=== PATIENT | female | born 1940 | race Caucasian/White ===

== ENCOUNTER → 2019-10-17 | Day surgery (SDC) | payer MEDICARE, OTHER ==
[2019-10-12 15:37] LABS: BASOPHILS # (AUTO) 0.1 (0.0-0.1); BASOPHILS % 0.8 % (0.0-1.0); EOSINOPHILS # (AUTO) 0.2 (0.0-0.4); HEMATOCRIT 43.4 % (34.2-44.1); HEMOGLOBIN 14.1 g/dL (12.0-16.0); LYMPHOCYTES # (AUTO) 3.7 (1.0-3.2); LYMPHOCYTES % 31.9 % (18.0-39.1); MEAN CORPUSCULAR HEMOGLOBIN 29.3 pg (28-32); MEAN CORPUSCULAR HGB CONC 32.5 g/dL (31-35); MONOCYTES # (AUTO) 0.9 (0.2-0.8); MONOCYTES % 8.1 % (4.4-11.3); NEUTROPHILS # (AUTO) 6.6 (2.1-6.9); NEUTROPHILS % 56.7 % (38.7-80.0); PLATELET COUNT 344 x10e3/uL (140-360); RED BLOOD COUNT 4.82 x10e6/uL (3.6-5.1); RED CELL DISTRIBUTION WIDTH 13.5 % (11.7-14.4)
[2019-10-12 15:54] LABS: ANION GAP 15.7 mmol/L (8-16); CREATININE, SERUM 1.23 mg/dL (0.57-1.11); POTASSIUM 3.7 mmol/L (3.5-5.1)
--- NOTE | 2019-10-12 16:15 | Diagnostic Imaging Report ---
Exam: CHEST 2 VIEWS Date: 10/12/2019 4:10 PM INDICATION: ^PRE - OP Comparison: None FINDINGS: Lines/Tubes:None Lungs:The lungs are well inflated. No focal consolidation or pulmonary edema. Pleura:No pleural effusion. No pneumothorax. Heart/Mediastinum:The cardiomediastinal silhouette is normal in size and contour. Bones/Soft Tissues: No acute osseous abnormality. 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 Advanced multilevel degenerative changes of the thoracic spine and upper lumbar spine are noted with multilevel advanced disc space narrowing and anterolateral osteophytes. Upper abdomen: Cholecystectomy clips are noted in the right upper quadrant. IMPRESSION: Negative for acute intrathoracic process Signed by: Pepito Coley MD on 10/12/2019 4:11 PM
[~2019-10-17] MED LIST: AMLODIPINE BESY10 MG PO; BUPIVACAINE HCL 0.5% INJ 30 ML VIAL INJ ONE; CEFAZOLIN SOD 1 GM/NS 50ML 100 ML IV ONE; DEXAMETHASONE SOD PHOS INJ 4 MG/ML VIAL ONE; DIOVAN HCT 3201 EACH; FARXIGA10 MG; FLUOXETINE HCL20 M1 PO; GLIPIZIDE ER5 MG PO; LIDOCAINE HCL 2% LOCAL INJ 5 ML SDV VIAL INJ ONE; LOSARTAN POTAS100 MG PO; NEOSTIGMINE 1 MG/ML 10ML VIAL ONE; ONDANSETRON HCL INJ 2MG/ML 2ML 2 MG/ML VIAL ONE; PANTOPRAZOLE SO40 MG PO; PEPCID20 MG PO; PROPOFOL IV EMULSION 10 MG/ML 20 ML VIAL ONE; SEVOFLURANE INHAL SOLN 250 ML PEN BTL ONE; SIMVASTATIN20 MG PO; VITAMIN D; VITAMIN E400 UNI1; XANAX XR1 MG PO; XARELTO10 MG
--- NOTE | 2019-10-17 07:20 | NUR ---
SPIRITUAL CARE - Pre-Surgery Assessment: Pt in bed. Pt's daughter at bedside. Pt reported supportive attention from family and friends. Intervention: Whiting Machine Operator provided pastoral presence, hospitality, sympathetic listening, and prayer. Acquainted pt with availability of flow floor attendant while hospitalized. Outcome: Pt expressed appreciation for visit. No need for follow up indicated at this time. RAD[facility] Spiritual Care Department O: [phone]
[2019-10-17 10:30] VITALS: BP 152/73
--- NOTE | 2019-10-17 12:54 | Operative Report ---
DATE OF PROCEDURE: 10/17/2019 SURGEON: Latonia Cintron DPM PREOPERATIVE DIAGNOSES: 1. Chronic ulcer, left 2nd digit. 2. Rigid hammertoe, left 2nd, left 4th. 3. Diabetes with neuropathy. POSTOPERATIVE DIAGNOSES: 1. Chronic ulcer, left 2nd digit. 2. Rigid hammertoe, left 2nd, left 4th. 3. Diabetes with neuropathy. PROCEDURE: 1. Arthrodesis PIPJ 2nd, arthrodesis PIPJ 4th, flexor tendon tenotomy, 3rd. 2. Debridement of the ulcers 2nd with graft. 3. Excisional debridement to include subcutaneous tissue. ANESTHESIA: General anesthetic. HEMOSTASIS: Pneumatic thigh tourniquet. ESTIMATED BLOOD LOSS: Less than 10 mL. MATERIALS: [employer] PIPJ arthrodesis implant, Smart Toes x2, one for the 2nd, one for the 4th and the next one is human allograft for the ulcer. COMPLICATIONS: None. CONDITION: Stable. PROCEDURE IN DETAIL: Under mild sedation, the patient was brought to the operating room, placed on the operating table in supine position. Following IV sedation, anesthesia was obtained with a general anesthetic. At this point, the left foot scrubbed, prepped, and draped in the usual aseptic manner. It was then lowered to the table. Attention was directed to the 2nd digit, where a linear incision was made overlying the PIPJ joint. The incision was deepened via sharp and blunt dissection taking care to retract or cauterize neurovascular structures as necessary. It was deepened down to the level of the extensor tendon. The extensor tendon was then tenotomized in a transverse fashion. The PIPJ joint was visualized utilizing oscillating saw. The PIPJ joint was then made. It was then prepared for arthrodesis. It was then fixated utilizing an implant from [employer] Smart toe. There was noted to be adequate alignment clinically with the use of intraoperative fluoroscopy. Arthrodesis PIPJ 4th, this procedure was performed in the exact same manner as the procedure named above. Flexor tenotomy was performed of the plantar aspect of the 3rd in order to decrease the contracture and decrease the hammertoe. Debridement of the ulcer, 2nd. Attention was directed to the distal aspect where the chronic ulcer on the 2nd, left. Utilizing a #15 blade, the ulcer was debrided down to the level of subcutaneous tissue. Human allograft was then inserted in order to promote healing to the area. It was then secured utilizing a nonstick dressing. The area was then flushed with copious amount of normal sterile saline solution. The areas were then closed closing the deepest layer with 4-0 Vicryl and 4-0 nylon. Clean dressing was applied consisting of Adaptic ointment, 4x4s, Kerlix, and Edy bandage. The tourniquet was deflated. There was noted to be hyperemic response to all the digits. The patient tolerated the procedure well without complications, was transported to recovery room with vascular status intact. The patient will be discharge home when she meets criteria. She was given instructions to be nonweightbearing to elevate the foot while at rest, to follow up with me in the office and to call the office if any questions, concerns, or problems arise. HERMINIA Camp/MARIAELENA /[id number]
== END | disposition home or self-care (01) ==
LOC: OR 06:19
PROVIDERS: ATTEND Podiatrist Foot & Ankle Surgery
DX: M20.42 Other hammer toe(s) (acquired), left foot (principal); E11.40 Type 2 diabetes mellitus with diabetic neuropathy, unspecified; E11.621 Type 2 diabetes mellitus with foot ulcer; L97.528 Non-pressure chronic ulcer of other part of left foot with other specified severity; I10 Essential (primary) hypertension; Z88.6 Allergy status to analgesic agent; Z88.1 Allergy status to other antibiotic agents; Z01.810 Encounter for preprocedural cardiovascular examination; Z01.812 Encounter for preprocedural laboratory examination; Z01.818 Encounter for other preprocedural examination; Z11.59 Encounter for screening for other viral diseases; Z79.84 Long term (current) use of oral hypoglycemic drugs; Z79.02 Long term (current) use of antithrombotics/antiplatelets
CPT/HCPCS: 11042; 28232; 28285 ×2; 36415 ×2; 71046; 80048; 82948; 85025; 93005; C1776; J0690; J1100; J2001; J2405; J2704; J2710; Q4150; U0002; 76000

== ENCOUNTER → 2021-09-11 | Day surgery (SDC) | payer MEDICARE ==
[2021-09-09 11:44] LABS: BASOPHILS # (AUTO) 0.1 (0.0-0.1); BASOPHILS % 0.9 % (0.0-1.0); EOSINOPHILS # (AUTO) 0.1 (0.0-0.4); EOSINOPHILS % 1.6 % (0.0-6.0); HEMATOCRIT 40.6 % (34.2-44.1); HEMOGLOBIN 13.4 g/dL (12.0-16.0); LYMPHOCYTES # (AUTO) 2.1 (1.0-3.2); LYMPHOCYTES % 25.6 % (18.0-39.1); MEAN CORPUSCULAR VOLUME 90.8 fL (81-99); MONOCYTES # (AUTO) 0.7 (0.2-0.8); MONOCYTES % 8.6 % (4.4-11.3); NEUTROPHILS # (AUTO) 5.1 (2.1-6.9); NEUTROPHILS % 63.1 % (38.7-80.0); PLATELET COUNT 332 x10e3/uL (140-360); RED BLOOD COUNT 4.47 x10e6/uL (3.6-5.1); RED CELL DISTRIBUTION WIDTH 13.2 % (11.7-14.4)
[~2021-09-11] MED LIST changes: +AMLODIPINE BESYL5 MG PO; +AREDS PO; +ASPIRIN81 MG PO; -BUPIVACAINE HCL 0.5% INJ 30 ML VIAL INJ ONE; -CEFAZOLIN SOD 1 GM/NS 50ML 100 ML IV ONE; -DEXAMETHASONE SOD PHOS INJ 4 MG/ML VIAL ONE; +HYOSCYAMINE SULFATE 0.5 MG/ML INJ ONE; +KLONOPIN0.5 MG PO; +METOCLOPRAMIDE HCL 10 MG/2ML VIAL ONE; -NEOSTIGMINE 1 MG/ML 10ML VIAL ONE; -ONDANSETRON HCL INJ 2MG/ML 2ML 2 MG/ML VIAL ONE; -SEVOFLURANE INHAL SOLN 250 ML PEN BTL ONE; +VIT B12 PO; +VIT C PO
[2021-09-11 10:57] VITALS: BP 125/62
== END | disposition home or self-care (01) ==
LOC: OR 06:39
PROVIDERS: ATTEND Internal Medicine Gastroenterology
DX: K29.50 Unspecified chronic gastritis without bleeding (principal); D12.0 Benign neoplasm of cecum; D12.2 Benign neoplasm of ascending colon; D12.4 Benign neoplasm of descending colon; D12.5 Benign neoplasm of sigmoid colon; K20.90 Esophagitis, unspecified without bleeding; K44.9 Diaphragmatic hernia without obstruction or gangrene; K21.9 Gastro-esophageal reflux disease without esophagitis; K57.30 Diverticulosis of large intestine without perforation or abscess without bleeding; K64.8 Other hemorrhoids; R63.0 Anorexia; R63.4 Abnormal weight loss; Z71.3 Dietary counseling and surveillance; I10 Essential (primary) hypertension; Z71.89 Other specified counseling; E11.9 Type 2 diabetes mellitus without complications; H35.30 Unspecified macular degeneration; E78.1 Pure hyperglyceridemia; E78.00 Pure hypercholesterolemia, unspecified; F41.9 Anxiety disorder, unspecified; Z88.1 Allergy status to other antibiotic agents; Z01.810 Encounter for preprocedural cardiovascular examination; Z01.812 Encounter for preprocedural laboratory examination; Z20.822 Contact with and (suspected) exposure to COVID-19; Z79.84 Long term (current) use of oral hypoglycemic drugs; Z79.82 Long term (current) use of aspirin; Z79.899 Other long term (current) drug therapy; Z68.33 Body mass index [BMI] 33.0-33.9, adult
CPT/HCPCS: 0223U; 36415; 43239; 45378; 45380; 45385; 82948; 85025; 93005; J1980; J2001; J2765

== ENCOUNTER 2022-03-03 16:06 | Observation (INO) | payer MEDICARE ==
[~2022-03-03] VITALS: Ht 162.6 cm; Wt 87.1 kg
[~2022-03-03 16:06] MED LIST changes: -HYOSCYAMINE SULFATE 0.5 MG/ML INJ ONE; -LIDOCAINE HCL 2% LOCAL INJ 5 ML SDV VIAL INJ ONE; -METOCLOPRAMIDE HCL 10 MG/2ML VIAL ONE; -PROPOFOL IV EMULSION 10 MG/ML 20 ML VIAL ONE
[2022-03-03 16:59] LABS: BASOPHILS # (AUTO) 0.1 (0.0-0.1); BASOPHILS % 0.8 % (0.0-1.0); EOSINOPHILS # (AUTO) 0.1 (0.0-0.4); EOSINOPHILS % 1.3 % (0.0-6.0); HEMATOCRIT 44.4 % (34.2-44.1); HEMOGLOBIN 13.9 g/dL (12.0-16.0); LYMPHOCYTES # (AUTO) 2.7 (1.0-3.2); LYMPHOCYTES % 26.3 % (18.0-39.1); MEAN CORPUSCULAR HEMOGLOBIN 29.4 pg (28-32); MEAN CORPUSCULAR HGB CONC 31.3 g/dL (31-35); MEAN CORPUSCULAR VOLUME 94.1 fL (81-99); MONOCYTES # (AUTO) 0.8 (0.2-0.8); MONOCYTES % 7.5 % (4.4-11.3); NEUTROPHILS # (AUTO) 6.7 (2.1-6.9); NEUTROPHILS % 63.8 % (38.7-80.0); PLATELET COUNT 381 x10e3/uL (140-360); RED BLOOD COUNT 4.72 x10e6/uL (3.6-5.1); RED CELL DISTRIBUTION WIDTH 12.9 % (11.7-14.4)
[2022-03-03] MEDS ORDERED: DILTIAZEM HCL 5 MG/ML 5 ML VIAL IV ONE (17:00)
[2022-03-03 17:07] LABS: INR 0.97; PROTHROMBIN TIME 13.1 seconds (11.9-14.5)
[2022-03-03 17:16] LABS: ALBUMIN 4.1 g/dL (3.5-5.0); ALBUMIN/GLOBULIN RATIO 1.3 (0.8-2.0); ANION GAP 17.6 mmol/L (8-16); CALCIUM 9.9 mg/dL (8.4-10.2); POTASSIUM 3.6 mmol/L (3.5-5.1)
[2022-03-03 20:00] VITALS: BP 114/64
[2022-03-03 22:30] VITALS: BP 114/64
[2022-03-03 23:09] VITALS: BP 114/64
[2022-03-04] VITALS (9 sets, daily range): BP systolic 103–138; BP diastolic 59–94
[2022-03-04 06:22] LABS: BASOPHILS # (AUTO) 0.1 (0.0-0.1); EOSINOPHILS # (AUTO) 0.3 (0.0-0.4); EOSINOPHILS % 2.9 % (0.0-6.0); HEMATOCRIT 37.4 % (34.2-44.1); HEMOGLOBIN 12.5 g/dL (12.0-16.0); LYMPHOCYTES # (AUTO) 3.1 (1.0-3.2); LYMPHOCYTES % 31.9 % (18.0-39.1); MEAN CORPUSCULAR HEMOGLOBIN 29.8 pg (28-32); MEAN CORPUSCULAR HGB CONC 33.4 g/dL (31-35); MONOCYTES # (AUTO) 0.9 (0.2-0.8); MONOCYTES % 9.6 % (4.4-11.3); NEUTROPHILS # (AUTO) 5.2 (2.1-6.9); NEUTROPHILS % 54.3 % (38.7-80.0); PLATELET COUNT 322 x10e3/uL (140-360); RED CELL DISTRIBUTION WIDTH 13.3 % (11.7-14.4)
[2022-03-04 06:43] LABS: ANION GAP 15.5 mmol/L (8-16); CALCIUM 9.1 mg/dL (8.4-10.2); CREATININE, SERUM 0.89 mg/dL (0.57-1.11); POTASSIUM 3.5 mmol/L (3.5-5.1)
[2022-03-04] MEDS ORDERED: CLONAZEPAM 0.5 MG TAB PO SCH (10:30)
[2022-03-04] MEDS ORDERED: GLIPIZIDE 5 MG TAB ER PO SCH (10:30)
[2022-03-04 10:56] LABS: CHOL/HDL RATIO 5.3 (3.0-3.6)
[2022-03-04] MEDS ORDERED: AMIODARONE HCL100 MG PO ×2 (10:58→10:59)
[2022-03-04] MEDS ORDERED: ELIQUIS5 MG PO (11:02)
[2022-03-04] MEDS ORDERED: AMIODARONE HCL200 MG PO (11:02)
[2022-03-04 11:15] LABS: THYROID STIMULATING HORMONE 6.91 uIU/mL (0.350-4.940)
[2022-03-04] MEDS ORDERED: APIXABAN 5 MG TABLET PO SCH (11:30)
[2022-03-04] MEDS ORDERED: ALPRAZOLAM 1 MG TAB PO SCH (15:00)
[2022-03-04] MEDS ORDERED: ALPRAZOLAM 1 MG PO SCH (15:00)
[2022-03-05] MEDS ORDERED: ASPIRIN 81 MG CHEW TAB PO SCH (09:00)
[2022-03-05] MEDS ORDERED: PANTOPRAZOLE SOD 40 MG TABEC PO SCH (09:00)
[2022-03-05] MEDS ORDERED: SIMVASTATIN 20 MG TAB PO SCH (09:00)
[2022-03-05] MEDS ORDERED: AMIODARONE HCL 200 MG TAB PO SCH (09:00)
[2022-03-05] MEDS ORDERED: CLONAZEPAM 0.5 MG TAB PO SCH (09:00)
[2022-03-05] MEDS ORDERED: AMLODIPINE BESYLATE 5 MG TAB PO SCH (09:00)
== END 2022-03-04 18:21 | disposition home or self-care (01) ==
LOC: ER 16:10 → ERHOLD 17:10 → MED/SURG2 20:19 → INTOOBSV 03-04 09:44 → OBSVTOIN 03-04 09:44
DX: I48.91 Unspecified atrial fibrillation (principal); E11.9 Type 2 diabetes mellitus without complications; I10 Essential (primary) hypertension; R26.81 Unsteadiness on feet; I20.9 Angina pectoris, unspecified; I73.9 Peripheral vascular disease, unspecified; E78.5 Hyperlipidemia, unspecified; G62.9 Polyneuropathy, unspecified; K21.9 Gastro-esophageal reflux disease without esophagitis; F41.9 Anxiety disorder, unspecified; Z86.718 Personal history of other venous thrombosis and embolism; Z20.822 Contact with and (suspected) exposure to COVID-19; M17.0 Bilateral primary osteoarthritis of knee; H35.30 Unspecified macular degeneration; M47.9 Spondylosis, unspecified; M19.072 Primary osteoarthritis, left ankle and foot; M19.071 Primary osteoarthritis, right ankle and foot; Z88.6 Allergy status to analgesic agent; Z88.1 Allergy status to other antibiotic agents; Z79.82 Long term (current) use of aspirin; Z79.84 Long term (current) use of oral hypoglycemic drugs; Z79.899 Other long term (current) drug therapy; Z82.49 Family history of ischemic heart disease and other diseases of the circulatory system; Z83.3 Family history of diabetes mellitus
CPT/HCPCS: 36415 ×2; 70450; 70551; 80048; 80053; 80061; 82948 ×2; 84443; 84484; 85025 ×2; 85610; 93005; 99251; 99284; G0378 ×2; S0164; U0002; 99252

== ENCOUNTER → 2024-04-05 | Day surgery (SDC) | payer MEDICARE ==
[2024-03-31 12:54] LABS: BASOPHILS # (AUTO) 0.1 (0.0-0.1); BASOPHILS % 0.6 % (0.0-1.0); EOSINOPHILS # (AUTO) 0.2 (0.0-0.4); EOSINOPHILS % 1.7 % (0.0-6.0); HEMATOCRIT 40.8 % (34.2-44.1); HEMOGLOBIN 13.7 g/dL (12.0-16.0); LYMPHOCYTES # (AUTO) 2.2 (1.0-3.2); LYMPHOCYTES % 25.3 % (18.0-39.1); MEAN CORPUSCULAR HEMOGLOBIN 30.1 pg (28-32); MEAN CORPUSCULAR HGB CONC 33.6 g/dL (31-35); MEAN CORPUSCULAR VOLUME 89.7 fL (81-99); MONOCYTES # (AUTO) 0.7 (0.2-0.8); MONOCYTES % 8.2 % (4.4-11.3); NEUTROPHILS # (AUTO) 5.6 (2.1-6.9); PLATELET COUNT 257 x10e3/uL (140-360); RED BLOOD COUNT 4.55 x10e6/uL (3.6-5.1); RED CELL DISTRIBUTION WIDTH 13.4 % (11.7-14.4); WHITE BLOOD COUNT 8.73 x10e3/uL (4.8-10.8)
[2024-03-31 13:15] LABS: ANION GAP 14.3 mmol/L (8-16); CALCIUM 8.9 mg/dL (8.4-10.2); CREATININE, SERUM 1.04 mg/dL (0.57-1.11)
[2024-03-31 13:20] LABS: POTASSIUM 3.3 mmol/L (3.5-5.1)
[~2024-04-05] MED LIST changes: +ACIPHEX20 MG PO; +AMIODARONE HCL100 MG PO; +AMIODARONE HCL200 MG PO; +CLINDAMYCIN 600MG / 50ML 50 ML IV ONE; +ELIQUIS5 MG PO; +FENTANYL CITRATE/PF 100MCG/2 ML INJ ONE; +LIDOCAINE HCL 2% LOCAL INJ 5 ML SDV VIAL INJ ONE; +METOPROLOL SUCC50 MG PO; +PRESERVISION A1 EAC2 PO; +PROPOFOL IV EMULSION 10 MG/ML 20 ML VIAL ONE; +SERTRALINE HCL50 MG PO; +SEVOFLURANE INHAL SOLN 250 ML PEN BTL ONE
[2024-04-05] MEDS: LACTATED RINGER'S 1,000 ML ONE (11:10)
[2024-04-05 13:13] VITALS: TEMP 98.3
[2024-04-05 14:10] VITALS: BP 146/99; PULSE 77; RESP 16; O2SAT 97
== END | disposition home or self-care (01) ==
LOC: OR 10:08
PROVIDERS: ATTEND Podiatrist Foot & Ankle Surgery
DX: T84.418A Breakdown (mechanical) of other internal orthopedic devices, implants and grafts, initial encounter (principal); L89.899 Pressure ulcer of other site, unspecified stage; E11.9 Type 2 diabetes mellitus without complications; G62.9 Polyneuropathy, unspecified; I10 Essential (primary) hypertension; I48.91 Unspecified atrial fibrillation; K21.9 Gastro-esophageal reflux disease without esophagitis; N39.0 Urinary tract infection, site not specified; F41.9 Anxiety disorder, unspecified; F32.A Depression, unspecified; Y83.8 Other surgical procedures as the cause of abnormal reaction of the patient, or of later complication, without mention of misadventure at the time of the procedure; Z88.6 Allergy status to analgesic agent; Z88.1 Allergy status to other antibiotic agents; Z88.2 Allergy status to sulfonamides; Z01.810 Encounter for preprocedural cardiovascular examination; Z01.812 Encounter for preprocedural laboratory examination; Z01.818 Encounter for other preprocedural examination; Z79.02 Long term (current) use of antithrombotics/antiplatelets; Z79.84 Long term (current) use of oral hypoglycemic drugs; Z79.899 Other long term (current) drug therapy
CPT/HCPCS: 28899; 36415; 71046; 76000; 80048; 85025; 88300; 93005; C1713; C1762; J2003; J2704; J3010; J7121